=== PATIENT | male | born 1955 | race Caucasian/White ===

== ENCOUNTER 2017-01-18 05:16 | Inpatient (IN) | payer BC ==
--- NOTE | 2016-12-03 14:27 | PAT Medication Instructions ---
Service Date Dec 03, 2016. Current Home Medication List Fish Oil (Lamar-3), 1 CAP PO QAM Insulin Glargine (Lantus), 20-25 UNITS SC QPM Lorazepam (Ativan), 1-2 MG PO DAILY PRN for PRN Losartan Potassium (Cozaar), 12.5 MG PO QAM Metformin Hcl (Glucophage), 1,000 MG PO BID Multivitamin (Multivitamin), 1 TAB PO QAM Naproxen (Aleve), 220 MG PO Q12 Omeprazole (Prilosec), 20 MG PO QAM Simvastatin (Zocor), 20 MG PO QPM Medication Instructions For Your Scheduled Surgery - Check with surgeon for instructions: Naproxen (Aleve), 220 MG PO Q12 - Hold the following medications 2 weeks prior to surgery: Fish Oil (Lamar-3), 1 CAP PO QAM - Hold the following medications 48 hours prior to surgery: Metformin Hcl (Glucophage), 1,000 MG PO BID - Hold the following medications the morning of surgery: Multivitamin (Multivitamin), 1 TAB PO QAM Losartan Potassium (Cozaar), 12.5 MG PO QAM - Take the following medications the morning of surgery with a sip of water: Omeprazole (Prilosec), 20 MG PO QAM Lorazepam (Ativan), 1-2 MG PO DAILY PRN for PRN - Take the following medications as scheduled the night before surgery: Insulin Glargine (Lantus), 20-25 UNITS SC QPM Simvastatin (Zocor), 20 MG PO QPM Lorazepam (Ativan), 1-2 MG PO DAILY PRN for PRN If you have any questions please call us at [phone] (Analia Mike PA-C) or [phone] or [phone]
[2016-12-03 14:42] LABS: BASO % 0.4 %; BASO ABS # 0.03 K/uL (0-0.2); COMPLETE YES; EOS % 2.4 %; HEMATOCRIT 43.3 % (42-52); IG% 0.1 %; LYMPH % 22.8 %; LYMPH ABS # 1.63 K/uL (1.2-3.4); MEAN CELL VOLUME 86.8 fL (80-100); MEAN CORPUSCULAR HEMOGLOBIN 29.7 pg (25-34); MEAN CORPUSCULAR HGB CONC 34.2 g/dl (32-36); MONO % 8.5 %; NEUT % 65.8 %; PLATELET COUNT 339 K/uL (130-400); RED BLOOD COUNT 4.99 M/uL (4.7-6.1); WHITE BLOOD COUNT 7.15 K/uL (4.8-10.8)
--- NOTE | 2016-12-03 14:53 | DIAGNOSTIC IMAGING REPORT ---
TWO VIEW CHEST CLINICAL HISTORY: Preoperative examination. FINDINGS: PA and lateral chest radiographs are compared to study dated 08/16/2014. The cardiomediastinal silhouette is unremarkable. The lungs and pleural spaces are clear. There is no pneumothorax. The bony thorax appears intact. Degenerative change is noted in the thoracic spine. IMPRESSION: No active disease in the chest. Electronically signed by: Dudley Wang M.D. 12/03/2016 2:51 PM Dictated Date/Time: 12/03/2016 2:50 PM
[2016-12-03 15:04] LABS: BLOOD UREA NITROGEN 23 mg/dl (7-18); BUN/CREATININE RATIO 27.1 (10-20); C-REACTIVE PROTEIN < 0.29 mg/dl (0-0.29); CALCIUM 9.1 mg/dl (8.5-10.1); CARBON DIOXIDE 28 mmol/L (21-32); CHLORIDE 101 mmol/L (98-107); CREATININE 0.84 mg/dl (0.60-1.40); GLUCOSE 167 mg/dl (70-99); POTASSIUM 3.9 mmol/L (3.5-5.1); SODIUM 139 mmol/L (136-145)
[2016-12-03 15:06] LABS: INR 0.9 (0.9-1.1); PARTIAL THROMBOPLASTIN RATIO 0.9; PROTHROMBIN TIME (PATIENT) 10.1 SECONDS (9.0-12.0)
[2016-12-04 06:03] LABS: ESTIMATED AVERAGE GLUCOSE 143 mg/dl; HA1C FLAG Normal (Normal)
--- NOTE | 2017-01-15 09:38 | HISTORY & PHYSICAL EXAMINATION ---
DATE OF ADMISSION: 01/18/2017 CHIEF COMPLAINT: Left hip pain. HISTORY OF PRESENT ILLNESS: A 61-year-old gentleman now about 2 years out from right hip replacement. He has done well from that side. Over the past 8 months he has developed markedly increased pain and discomfort in his left hip. It is starting to really limit his walking tolerance and ability to perform his job. The more he walks, the more it hurts. He describes groin pain. He has tried various medicines to include Tylenol and anti-inflammatories which takes the edge off at best. He would like to have his left hip replaced. PAST MEDICAL HISTORY: 1. Hypertension. 2. Elevated cholesterol. 3. Insulin-dependent diabetes. 4. Gastroesophageal reflux disease. PAST SURGICAL HISTORY: Include: 1. Right hip replacement done 09/03/2014. 2. Left patellar tendon repair. 3. Right patella tendon surgery. ALLERGIES: None. CURRENT MEDICATIONS: Include: 1. Metformin. 2. Lisinopril. 3. Insulin. SOCIAL HISTORY: A 61-year-old male. He works as a therapist at [employer]. He is from [place]. with 3 children. Rare alcohol intake. FAMILY HISTORY: Significant for diabetes, liver cancer, heart disease. REVIEW OF SYSTEMS: Significant for well controlled diabetes with an A1c of 6.6. No chest pain or shortness of breath. No history of DVT or PE. PHYSICAL EXAMINATION: GENERAL: Reveals elderly pleasant, middle-aged male. He looks to be in good health. HEAD, EYES, EARS, NOSE, AND THROAT EXAMINATION: Benign. NECK: Supple. No lymphadenopathy. LUNGS: Clear to auscultation. HEART: Has a regular rate and rhythm. ABDOMEN: Soft, nontender, nondistended. EXTREMITY EXAMINATION: Grossly neurovascularly intact except as follows: Examination of the left hip reveals the patient walks with an antalgic gait. He is about a 0.5 cm short on the left side compared to the right. He has pain with any type of hip motion. Internal rotation is -10, external rotation to 20 degrees. Negative straight leg raise. He is neurologically intact. X-RAYS: X-rays of the left hip were reviewed. It shows advanced left hip DJD. He has got complete loss of the superior joint space. He has got flattening of his femoral head. This has progressed markedly since his previous films. His right hip replacement looks to be in good position. 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 He has failed conservative treatment and would like to have his left hip replaced. PLAN: We are going to take him to the operating room and do a left total hip replacement. The risks and benefits of this procedure were explained to the patient including but not limited to DVT, PE, , infection, neurological injury, vascular injury, bleeding problem, pain, limited range of motion, stiffness, failure to his symptoms, incomplete relief of symptoms, need for further surgery in the future, fracture, leg length inequality, nerve palsy, dislocation, etc. The patient understands and desires to proceed. Informed consent was obtained. We did talk about holding lisinopril the morning of surgery as well as metformin. He will need insulin sliding scale coverage in the hospital. As far as discharge plans, he is planning to be discharged to home using [facility] home health program. The patient had preoperative workup which all looked fairly normal. Chest x-ray showed no acute disease. EKG showed sinus rhythm with some PACs. Labs are all pretty normal. A1c looks good at 6.6.
[~2017-01-18] VITALS: Ht 188 cm; Wt 108.2 kg
[2017-01-18] VITALS (23 sets, daily range): BP systolic 114–157; BP diastolic 71–92; PULSE 64–114; TEMP 36.3–36.9; O2SAT 91–100; Ht 188 cm; Wt 108.2 kg
[~2017-01-18 05:16] MED LIST: ATV/1 PO; INSDGI SC; LOSA1TAB PO; METF-384 PO; MULT-506 PO; NAPR1TAB9 PO; OMEG10007 PO; PRLSR20 PO; SIMV20TA2 PO
[2017-01-18] MEDS ORDERED: TRANEXAMIC ACID INJ 1,000 MG in SODIUM CHLORIDE 0.9% 100ML 100 ML IV SCH (06:00)
[2017-01-18] MEDS ORDERED: ACETAMINOPHEN 500 MG TAB PO SCH (06:00)
[2017-01-18] MEDS ORDERED: FAMOTIDINE 20 MG TAB PO SCH (06:00)
[2017-01-18] MEDS ORDERED: LACTATED RINGER'S 1000ML IV SCH (06:00)
[2017-01-18] MEDS ORDERED: GABAPENTIN 300 MG CAP PO SCH (06:00)
[2017-01-18] MEDS ORDERED: METOCLOPRAMIDE HCL 10 MG TAB PO SCH (06:00)
[2017-01-18] MEDS ORDERED: SCOPOLAMINE 1.5 MG TDSY TD SCH (06:00)
[2017-01-18] MEDS ORDERED: CEFAZOLIN 2000 MG/60 ML D5W 60 ML IV SCH (06:00)
[2017-01-18] MEDS ORDERED: LACTATED RINGER'S 1000ML 1,000 ML IV SCH (06:00)
[2017-01-18] MEDS ORDERED: BUPIVACAINE/EPINEPHRINE 0.5% MPF 1:200,000 30 ML VIAL ONE (06:29)
[2017-01-18] MEDS ORDERED: BACITRACIN 50000 UNIT VIAL ONE (06:29)
[2017-01-18] MEDS ORDERED: BUPIVACAINE 0.5 % 5 MG/1 ML PF 10ML VIAL ONE (06:32)
[2017-01-18] MEDS ORDERED: MoRPHine SULFATE PF 1 MG/ML 10 ML AMP/VIAL ONE (06:42)
[2017-01-18] MEDS ORDERED: MIDAZOLAM HCL 1 MG/ML 2ML VIAL ONE ×2 (06:42)
[2017-01-18] MEDS ORDERED: FENTANYL CITRATE INJ 50 MCG/1 ML 2 ML VIAL ONE (06:42)
--- NOTE | 2017-01-18 06:50 | History & Physical Bridge Note ---
H&P Re-Evaluation Bridge Note: I have examined the patient, reviewed the History & Physical and in the interval since the performance of the History & Physical I have noted the following changes of clinical significance: No changes noted
[2017-01-18] MEDS ORDERED: ONDANSETRON INJ 2 MG/ML 2 ML VIAL ONE (07:27)
[2017-01-18] MEDS ORDERED: PHENYLEPHRINE 100MCG/ML 5ML SYR ONE (07:27)
[2017-01-18] MEDS ORDERED: PROPOFOL IV EMULSION 10 MG/ML 20 ML VIAL IV ONE ×2 (07:27→07:53)
--- NOTE | 2017-01-18 08:28 | [facility] Post Operative Brief Note ---
Immediate Operative Summary Operative Date Jan 18, 2017. Pre-Operative Diagnosis Advanced Left Hip Degenerative Joint Disease Post-Operative Diagnosis Advanced Left Hip Degenerative Joint Disease Procedure(s) Performed Left Total Hip Arthroplasty--Uncemented Surgeon Dr. Iniguez Clinical Abstractor Surgeon(s) MACRINA Hancock Estimated Blood Loss 300 ml Findings Left Hip DJD Fluids (cc crystalloids) 1800 cc Specimens A. Left Femoral Head Drains None Anesthesia Spinal Complication(s) None Disposition Recovery Room / PACU
[2017-01-18] MEDS ORDERED: MAGNESIUM HYDROXIDE SUSP 30 ML UDC PO PRN (08:30)
[2017-01-18] MEDS ORDERED: GLUCAGON FOR INJ 1 MG VIAL SQ PRN (08:30)
[2017-01-18] MEDS ORDERED: GLUCOSE 40% GEL 15 GM TUBE PO PRN (08:30)
[2017-01-18] MEDS ORDERED: BISACODYL 10 MG SUPP PR PRN (08:30)
[2017-01-18] MEDS ORDERED: DEXTROSE 50% 50 ML SYR IV PRN (08:30)
[2017-01-18] MEDS ORDERED: TAMSULOSIN HCL 0.4 MG CAP PO PRN (08:30)
[2017-01-18] MEDS ORDERED: GLUCOSE 10 TABS/TUBE PO PRN (08:30)
[2017-01-18] MEDS ORDERED: ALUMINUM/MAGNESIUM/SIMETH (MAALOX MAX) 30 ML UDC PO PRN (08:30)
[2017-01-18] MEDS ORDERED: SILVER SULFADIAZINE 1% CR 50 GM JAR EXT PRN (08:30)
[2017-01-18] MEDS ORDERED: NALOXONE HCL INJ 0.08 MG in SYRINGE 1.8 ML IV PRN (08:56)
[2017-01-18] MEDS ORDERED: LACTATED RINGER'S 1000ML 500 ML IV PRN (08:56)
[2017-01-18] MEDS ORDERED: NALOXONE HCL INJ 1 MG in SODIUM CHLORIDE 0.9% 1000ML 1,000 ML IV PRN ×4 (08:56)
[2017-01-18] MEDS ORDERED: SODIUM CHLORIDE 0.9% 1000ML 1,000 ML IV PRN (08:56)
--- NOTE | 2017-01-18 08:59 | Anesthesiology Progress Note ---
Anesthesia Post Op Note Date & Time Jan 18, 2017 at 08:59 Vital Signs Pain Intensity: 0 Vital Signs Past 12 Hours Date Time Temp Pulse Resp B/P Pulse Ox O2 Delivery O2 Flow Rate FiO2 01/18/17 08:55 73 19 118/79 99 Nasal Cannula 2 01/18/17 08:45 76 14 123/75 98 Nasal Cannula 2 01/18/17 08:35 88 18 125/75 99 Nasal Cannula 2 01/18/17 08:29 36.7 84 12 111/65 97 Nasal Cannula 2 01/18/17 06:01 36.8 90 22 157/92 97 Room Air Notes Mental Status: alert / awake / arousable, participated in evaluation Pt Amnestic to Procedure: Yes Nausea / Vomiting: adequately controlled Pain: adequately controlled Airway Patency, RR, SpO2: stable & adequate BP & HR: stable & adequate Hydration State: stable & adequate Neuraxial Anesthesia: was administered, sensory block is resolving Anesthetic Complications: no major complications apparent
[2017-01-18] MEDS ORDERED: ONDANSETRON INJ 2 MG/ML 2 ML VIAL IV PRN (09:00)
[2017-01-18] MEDS ORDERED: NALOXONE HCL 0.4 MG/1 ML VIAL/CARP IV PRN (09:00)
[2017-01-18] MEDS ORDERED: MULTIVITAMIN TAB PO SCH (09:00)
[2017-01-18] MEDS ORDERED: NALBUPHINE HCL INJ 10 MG/ML AMP IV PRN (09:00)
[2017-01-18] MEDS ORDERED: DiphenhydrAMINE HCL 50 MG/ML VIAL IV PRN (09:00)
[2017-01-18] MEDS ORDERED: NO NARCOTICS OR SEDATIVES SCH (09:00)
[2017-01-18] MEDS ORDERED: PANTOprazole SOD 40 MG TAB PO SCH (09:00)
[2017-01-18] MEDS ORDERED: EpHEDrine SULFATE INJ 50 MG/ML AMP IV PRN (09:00)
[2017-01-18] MEDS ORDERED: PROMETHAZINE HCL INJ 25 MG in SODIUM CHLORIDE 0.9% 50ML 50 ML IV PRN (09:00)
[2017-01-18] MEDS ORDERED: MoRPHine SULFATE PF 1 MG/ML 10 ML AMP/VIAL EPI PRN (09:00)
--- NOTE | 2017-01-18 09:15 | DIAGNOSTIC IMAGING REPORT ---
LEFT PELVIS/UNILATERAL HIP 1 VIEW CLINICAL HISTORY: Left hip arthroplasty. COMPARISON: Pelvis and left hip radiographs October 14, 2016. FINDINGS: No periprosthetic fracture or unexpected radiopaque foreign bodies are identified. On the first crosstable lateral radiograph obtained at 8:47 AM, there is anterior dislocation of the femoral component with respect to the acetabular cup. Alignment is anatomic on the second image obtained at 8:57 AM. Skin sunny are present. A right hip arthroplasty is noted. IMPRESSION: 1. Status post total left hip arthroplasty. No periprosthetic fracture or unexpected radiopaque foreign body. 2. Anatomic alignment of the left hip arthroplasty on the second, final image. Anterior subluxation/dislocation on the initial image. Electronically signed by: Cruz Chavez M.D. 01/18/2017 9:14 AM Dictated Date/Time: 01/18/2017 9:08 AM
--- NOTE | 2017-01-18 09:19 | OPERATIVE REPORT ---
DATE OF OPERATION: 01/18/2017 SURGEON: Easton Iniguez MD DEMAND PLANNING ANALYST: MACRINA Varner PREOPERATIVE DIAGNOSIS: Left hip degenerative joint disease. POSTOPERATIVE DIAGNOSIS: Same. PROCEDURE PERFORMED: Left uncemented ceramic on highly cross-linked polyethylene total hip arthroplasty. COMPLICATIONS: None. ESTIMATED BLOOD LOSS: 300 mL. FLUID REPLACEMENT: 1800 mL crystalloid fluid replacement. ANESTHESIA: Spinal. DRAINS: None. SPECIMENS: Left femoral head sent for pathology. OPERATIVE INDICATIONS: The patient is a 61-year-old male who has had a long history of bilateral hip problems. He had a right hip replacement 2 years ago and has done well from this. Over the past few years, he has developed markedly increased pain and discomfort in his left hip. He failed conservative care. X-rays showed advanced left hip DJD. He elected to proceed with operative treatment. OPERATIVE FINDINGS: Operative findings revealed advanced left hip DJD. He had a large hip joint effusion. Large osteophytes around the acetabulum as well as the femoral head. He had a large joint effusion with bloody effusion. OPERATIVE IMPLANTS: Operative implants consisted of: 1. Biomet G7 size 58-mm acetabular shell. 2. A 6.5 cancellous acetabular screws, 1 at 35 mm length and 1 at 20 mm length. 3. Vitamin E enriched highly cross-linked polyethylene liner with 58 mm outer diameter, 36 mm inner diameter. 4. An apex hole eliminator. 5. A DePuy size 15 large stature high offset femoral stem. 6. A +5/36 mm ceramic articular ball. OPERATIVE PROCEDURE: The patient was taken to the operating room, identified and placed on the operating table in the supine position. All contact areas were appropriately padded. IV antibiotics provided by the anesthesia team. A spinal anesthetic had been implemented in the holding area. Coronado catheter was placed in the sterile fashion. The patient was then placed in the right lateral decubitus position. An axillary roll was placed. Stulberg hip positioner was used for positioning. The left hip and leg were then prepped and draped in usual sterile fashion. Posterolateral approach to the left hip was then performed through a curvilinear incision centered over the greater trochanter. Sharp dissection was carried out through the subcutaneous tissue down to the level of the IT band and gluteal fascia. The IT band and gluteal fascia were then incised longitudinally in line with skin incision. The underlying greater trochanteric bursa was excised. The piriformis and external rotators were tagged and taken carefully off the posterior aspect of the femur. Great care was taken throughout the procedure to protect the sciatic nerve at all times. Posterior capsulotomy was then performed leaving a large flap for later repair. Hip was internally rotated and dislocated. Femoral neck osteotomy cut was made with the final cut 15 mm above the lesser trochanter. Femoral head was removed and sent for pathology. The femur was retracted anteriorly. Attention was then drawn to the acetabulum. The acetabular labrum was excised. The pulvinar fat was excised. Sequential reaming of the acetabulum was then performed beginning with a size 51 and progressing up to 57. A 58-mm G7 acetabular shell was then placed in about 40 degrees of lateral opening and 20 degrees of anteversion. It was fixed with two 6.5 cancellous acetabular screws. A large anterior osteophyte was removed. A trial liner was placed. Attention was then drawn to the femur. The proximal femur was entered with cookie cutter followed by canal finder and lateralizing reamer. Sequential reaming of the femur was then performed beginning with a size 10 and progressing up to 14.5. We got excellent chatter at a 14.5. I then broached beginning with a size 12 small and progressing up to a 15 large. We got good metaphyseal fit. Calcar reamer was used to smoothen off the calcar. We then trialed the hip. Everything felt pretty well with the +5/36 mm articular ball, but the soft tissue tension was still a little bit lax. We then placed a high offset stem, which improved the soft tissue tension. The hip was fully stable in full extension, external rotation, flexion to 90 degrees, and internal rotation to 70 degrees. Leg lengths appeared appropriately. Attention was then drawn toward placement of the permanent components. All trial components were removed. An apex hole eliminator was placed. A vitamin E enriched highly cross-linked polyethylene liner was placed. A 15 large stature high offset femoral stem was impacted in position. We got excellent scratch fit. A +5/36 mm ceramic articular ball was placed. Hip was located and once again found to be stable. Attention was then drawn toward closing. I irrigated the wound extensively. I did inject locally with 60 mL of 0.5% Marcaine with epinephrine. I irrigated extensively. The posterior capsule and external rotators were repaired to the posterior aspect of the greater trochanter with #2 Ti-Cron sutures through drill holes. The IT band and gluteal fascia were then closed with #1 PDS suture in a running fashion. The subcutaneous tissues were then closed with 2-0 Dexon suture in a buried interrupted fashion. The skin was then closed with skin sunny. Leg was then cleaned and dried and a sterile dressing composed of Xeroform, 4 x 4, sterile ABD pad and foam tape were applied. The patient was then transferred to the recovery room in stable condition. The patient tolerated the procedure well with no complications. All needle and sponge counts were correct at the end of the operation. I attest to the content of the Intraoperative Record and any orders documented therein. Any exceptio ns are noted below.
[2017-01-18] MEDS: SODIUM CHLORIDE 0.9% 1000ML 1,000 ML IV SCH ×3 (10:41→22:19)
[2017-01-18] MEDS: DOCUSATE SODIUM 100 MG CAP PO SCH ×2 (11:08→21:34)
[2017-01-18] MEDS: PANTOprazole SOD 40 MG TAB PO SCH (11:09)
[2017-01-18] MEDS: MULTIVITAMIN TAB PO SCH (11:09)
[2017-01-18] MEDS: KETOROLAC TROMETHAMINE 30 MG/ML VIAL IV. SCH ×3 (11:10→21:38)
[2017-01-18] MEDS: LOSARTAN POTASSIUM 25 MG TAB PO SCH (11:10)
[2017-01-18] MEDS: FERROUS GLUCONATE 324 MG TAB PO SCH ×2 (13:19→17:59)
[2017-01-18] MEDS: INSULIN HUMAN REGULAR SC SCH ×3 (13:43→21:32)
[2017-01-18] MEDS: ACETAMINOPHEN 500 MG TAB PO SCH ×2 (13:45→21:37)
[2017-01-18] MEDS: CEFAZOLIN IV 2,000 MG in DEXTROSE 5% 50ML 50 ML IV SCH ×2 (13:46→22:18)
--- NOTE | 2017-01-18 13:47 | PROGRESS NOTE ---
DATE: 01/18/2017 SUBJECTIVE: A 61-year-old gentleman postop from a left hip replacement. He is doing well. Not having any pain. No chest pain or shortness of breath. Not feeling dizzy or lightheaded. OBJECTIVE: VITAL SIGNS: Temperature is 36.5. Vital signs stable. GENERAL: Reveals a pleasant, middle-aged male. He is sitting up in bed and looks pretty comfortable. LUNGS: Clear to auscultation. HEART: Regular rate and rhythm. ABDOMEN: Soft, nontender, nondistended. EXTREMITIES: Grossly neurovascularly intact except as follows: Examination of the left lower extremity reveals the leg lengths to be equal. His toes are pointed to the ceiling. His hip is located. He can dorsiflex and plantarflex his foot appropriately. He is neurologically intact. X-RAYS: X-rays of the left hip from recovery room were reviewed. X-rays show the components to be in good position. On the initial lateral film, there was some subluxation of the femoral head anteriorly. We repositioned the foot as it was extremely externally rotated and the hip is located. ASSESSMENT: A 61-year-old gentleman postop from a left total hip replacement, doing well. His hip is located. He is neurologically intact. In the recovery room, he had some anterior subluxation likely just due to muscle relaxation and the large osteophytes we took off anteriorly to create some extra space there. His hip is clinically located now and I do not think that is going to be a problem as his muscle tones returned. PLAN: 1. DVT prophylaxis including thigh-high TEDs, SCDs, and aspirin twice a day. 2. PT/OT. Weightbearing as tolerated. Left total hip protocol. 3. Pain control, doing well with current pain regimen. Not having any pain. 4. IV antibiotics x24 hours. 5. Disposition: He is planning to be discharged to home with some home health once adequately recovered.
[2017-01-18] MEDS ORDERED: TRANEXAMIC ACID INJ 1,000 MG in SODIUM CHLORIDE 0.9% 100ML 100 ML IV ONE (15:00)
[2017-01-18] MEDS ORDERED: RXC5 PO (15:33)
[2017-01-18] MEDS ORDERED: ACET-1138 PO (15:33)
[2017-01-18] MEDS ORDERED: ASPEC325 PO (15:33)
[2017-01-18] MEDS: CHECK SCOPOLAMINE PATCH PLACEMENT SCH ×2 (16:12→23:40)
[2017-01-18] MEDS ORDERED: SIMVASTATIN 20 MG TAB PO SCH (21:00)
[2017-01-18] MEDS: ASPIRIN 325 MG ECTAB PO SCH (21:34)
[2017-01-19] VITALS (8 sets, daily range): BP systolic 106–150; BP diastolic 62–80; PULSE 73–84; TEMP 36.8–36.9; O2SAT 92–97
[2017-01-19] MEDS ORDERED: DC INTRASPINAL MORPHINE SCH (02:00)
[2017-01-19] MEDS ORDERED: ONDANSETRON INJ 2 MG/ML 2 ML VIAL IV PRN (02:01)
[2017-01-19] MEDS ORDERED: MoRPHine SULFATE 2 MG/ML CARP IV PRN (02:01)
[2017-01-19] MEDS ORDERED: METOCLOPRAMIDE HCL INJ 5 MG/ML 2 ML VIAL IV PRN (02:01)
[2017-01-19] MEDS ORDERED: OXYCODONE HCL IR 5 MG TAB (IMMEDIATE RELEASE) PO PRN (02:01)
[2017-01-19] MEDS ORDERED: LORAZEPAM 1 MG TAB PO PRN (02:01)
[2017-01-19] MEDS ORDERED: DiphenhydrAMINE HCL 50 MG/ML VIAL IV PRN (02:01)
[2017-01-19] MEDS ORDERED: ZOLPIDEM TARTRATE 5 MG TAB PO PRN (02:01)
[2017-01-19] MEDS: KETOROLAC TROMETHAMINE 30 MG/ML VIAL IV. SCH ×2 (03:49→12:11)
[2017-01-19] MEDS: SODIUM CHLORIDE 0.9% 1000ML 1,000 ML IV SCH (03:53)
[2017-01-19] MEDS: ACETAMINOPHEN 500 MG TAB PO SCH ×2 (05:31→13:09)
[2017-01-19 06:37] LABS: MEAN CORPUSCULAR HGB CONC 34.6 g/dl (32-36); MEAN PLATELET VOLUME 9.4 fL (7.4-10.4); PLATELET COUNT 289 K/uL (130-400)
[2017-01-19 07:11] LABS: BUN/CREATININE RATIO 13.6 (10-20); CALCIUM 8.1 mg/dl (8.5-10.1); CREATININE 0.8 mg/dl (0.60-1.40); HEMATOCRIT 35.6 % (42-52); MEAN CELL VOLUME 85.2 fL (80-100); MEAN CORPUSCULAR HEMOGLOBIN 29.4 pg (25-34); POTASSIUM 4.2 mmol/L (3.5-5.1); RED BLOOD COUNT 4.18 M/uL (4.7-6.1)
[2017-01-19 07:12] LABS: BASO % 0.3 %; BASO ABS # 0.02 K/uL (0-0.2); COMPLETE YES; EOS % 2.9 %; IG% 0.1 %; LYMPH % 15.8 %; LYMPH ABS # 1.09 K/uL (1.2-3.4); NEUT % 71.9 %
--- NOTE | 2017-01-19 07:30 | Anesthesiology Progress Note ---
Anesthesia Post Op Note Date & Time Jan 19, 2017 at 07:29 Vital Signs Pain Intensity: 0.0 Vital Signs Past 12 Hours Date Time Temp Pulse Resp B/P Pulse Ox O2 Delivery O2 Flow Rate FiO2 01/19/17 03:20 36.8 73 16 106/62 97 Room Air 01/19/17 02:00 16 95 01/19/17 01:00 16 95 01/19/17 00:00 16 92 01/18/17 23:40 36.7 77 16 125/71 99 Room Air 01/18/17 23:40 Room Air 01/18/17 23:00 16 96 01/18/17 22:00 18 97 01/18/17 21:00 18 98 01/18/17 20:07 36.9 76 16 130/80 98 Room Air 01/18/17 19:59 18 98 01/18/17 19:35 36.7 76 17 145/74 97 Room Air Notes Mental Status: alert / awake / arousable, participated in evaluation Pt Amnestic to Procedure: Yes Nausea / Vomiting: adequately controlled Pain: adequately controlled Airway Patency, RR, SpO2: stable & adequate BP & HR: stable & adequate Hydration State: stable & adequate Neuraxial Anesthesia: sensory block resolved Anesthetic Complications: no major complications apparent
[2017-01-19] MEDS: CHECK SCOPOLAMINE PATCH PLACEMENT SCH (08:00)
[2017-01-19] MEDS: DOCUSATE SODIUM 100 MG CAP PO SCH (08:42)
[2017-01-19] MEDS: PANTOprazole SOD 40 MG TAB PO SCH (08:43)
[2017-01-19] MEDS: MULTIVITAMIN TAB PO SCH (08:43)
[2017-01-19] MEDS: FERROUS GLUCONATE 324 MG TAB PO SCH ×2 (08:44→13:08)
[2017-01-19] MEDS: LOSARTAN POTASSIUM 25 MG TAB PO SCH (08:44)
[2017-01-19] MEDS: ASPIRIN 325 MG ECTAB PO SCH (08:44)
[2017-01-19] MEDS ORDERED: TAPENTADOL ER 50 MG TABCR PO SCH (09:00)
[2017-01-19] MEDS: INSULIN HUMAN REGULAR SC SCH ×2 (09:25→13:15)
--- NOTE | 2017-01-19 13:19 | Discharge Instructions ---
Discharge Instructions Admission Reason for Admission: Left Hip Degenerative Joint Disease Discharge Discharge Diagnosis / Problem: Left Hip Replacement Discharge Goals Goal(s): Decrease discomfort, Improve function, Increase independence, Improve disease control, Therapeutic intervention Activity Recommendations Activity Limitations: per Instructions/Follow-up section (Total Hip PRecautions ) Weightbearing Status: Left weightbearing . Instructions / Follow-Up Instructions / Follow-Up ACTIVITY RECOMMENDATIONS: Physical Therapy: * Aggressive physical therapy is not usually needed. You will learn to take care of yourself safely and walk. * Follow the "Hip Precautions Instructions." * In some cases, the executive secretary social welfare at the hospital will arrange to have a therapist come to your house for the first couple of weeks to help you learn these skills. * You need to practice on your own or with the help of a family member as needed. * When you learn these skills, most of the therapy can be done on your own. Home Exercise: * You were shown a series of exercises in the hospital. Do these exercises three to four times each day including the exercises you were shown in physical therapy. Walking: * Get up and walk several times each day. For the first four weeks, try not to stand or walk for more than one hour at a time. If you do stand or walk for more than one hour, you will not hurt anything, but your leg will likely swell. * As you feel comfortable, you may change from the walker or crutches to a cane and then to independent walking. MEDICATIONS: New Medicine: * You will likely be taking one or more of these medicines: 1. Oxycodone - Take, as directed, when you need it, every four to six hours to control your pain. 2. Aspirin - Thins your blood to lessen the chance of forming a blood clot. * The most common side effects of pain medicine and iron are nausea and constipation. If nausea or constipation is too much of a problem or if you have any questions about your new medicines or doses, call [facility] at . We will try to help you manage these issues. VERY IMPORTANT TO READ AND REVIEW" Pain: * The immediate post-operative period after hip replacement surgery is often quite painful. * You are given a prescription for pain medicine. You should take it, as directed, when you need it, especially before physical therapy and before going to bed. Pain that interferes with sleep is very common and can last several months. * You will likely need pain medicine for the first two to four weeks. It will not stop all of the pain. The pain will lessen and as you feel better, you may change to milder pain medicine such as Tylenol. * The most common side effects of pain medicine are nausea and constipation, so don't take more than you need. SPECIAL CARE INSTRUCTIONS: TEDs/Elastic Stockings: * The white elastic stockings help limit swelling and prevent blood clots from forming in your legs. The more you wear them, the more they work. * Wear them for six weeks. Prevention of Infection: * Take antibiotics one hour before any dental cleaning, dental work, urological procedure, gastrointestinal procedure or any invasive surgery in order to prevent your new joint from getting infected. * You may get the antibiotics from the doctor performing the procedure or you may call our office at before and we will call in a prescription to the pharmacy of your choice. Things to Watch For: * Drainage from the incision site that occurs more than one week after your surgery. * Severely increased leg pain or swelling. * Increased redness at the incision site. * Fever above 102 degrees Fahrenheit. * Unusual chest pain or shortness of breath. * Unusual pain or burning with urination. Call [facility] at with any of the above problems or if you have any questions about your medicines or recovery. FOLLOW UP VISIT: Make an appointment to see your doctor for approximately two weeks after surgery for a progress check and staple removal by calling the office at . Current Hospital Diet Patient's current hospital diet: Diabetes Type 2 Diet Discharge Diet Recommended Diet: Diabetes Type 2 Diet Procedures Procedures Performed: Left Total Hip Arthroplasty--Uncemented Pending Studies Studies pending at discharge: no Laboratory Results Hemoglobin A1c Test 12/03/16 14:12 Range/Units Estimated Average Glucose 143 mg/dl Hemoglobin A1c 6.6 H 4.5-5.6 % Medical Emergencies . Who to Call and When: Medical Emergencies: If at any time you feel your situation is an emergency, please call 911 immediately. . Non-Emergent Contact Non-Emergency issues call your: Surgeon . "Provider Documentation" section prepared by Easton Iniguez. VTE Core Measure Inpt VTE Proph given/why not?: Other Anticoagulation, T.E.D. Stockings, SCD's
--- NOTE | 2017-01-19 13:49 | PROGRESS NOTE ---
DATE: 01/19/2017 SUBJECTIVE: A 61-year-old gentleman postop day 1 from a left total hip replacement. He is doing well. Not having any pain. Therapy went well. No chest pain or shortness of breath. He is really desiring to go home. OBJECTIVE: VITAL SIGNS: Temperature 36.8. Vital signs stable. GENERAL: Physical examination reveals a healthy, pleasant, middle-aged male. He is sitting up in her bedside chair talking with his sister. Looks comfortable. LUNGS: Clear to auscultation. HEART: Regular rate and rhythm. ABDOMEN: Soft, nontender, nondistended. EXTREMITIES: Grossly neurovascularly intact except as follows: Examination of the left hip and leg reveals the dressing to be clean, dry and intact. Hip is located. He can dorsiflex and plantarflex his foot appropriately. He is neurologically intact. LABS: Hemoglobin is 12.3, hematocrit 35.6. Electrolytes are stable. ASSESSMENT: A 61-year-old gentleman postop day 1 from left total hip replacement, doing well. He is getting around quite well. He has not had any pain. PLAN: 1. DVT prophylaxis including thigh-high TEDs, SCDs, and aspirin twice a day. 2. PT/OT. Weightbearing as tolerated. Left total hip protocol. 3. Pain control, doing well with current pain regimen. Really not having any pain. 4. Disposition: We are going to discharge him to home.
--- NOTE | 2017-01-26 10:24 | DISCHARGE SUMMARY ---
ADMITTING PHYSICIAN AND SURGEON: Dr. Iniguez. ADMITTING DIAGNOSIS: Left hip degenerative joint disease. SURGERY PERFORMED: Left total hip arthroplasty. SECONDARY DIAGNOSES: Hypertension, elevated cholesterol, diabetes, gastroesophageal reflux disease. CONSULTS: None obtained. HISTORY AND PHYSICAL EXAMINATION: Well documented in the patient's chart. HOSPITAL COURSE: The patient was admitted on 01/18/2017 underwent total hip arthroplasty, tolerated the procedure well. There were no complications. He was transferred to the PACU postoperatively and later to the orthopedic floor for further care. He was given Ancef for antibiotic prophylaxis, DUNCAN stockings, SCDs and aspirin for DVT prophylaxis. Hemoglobin, hematocrit and vital signs were monitored during his hospital stay and remained stable, did not require any blood transfusions. There were no complications. By postoperative day 1, he was tolerating a diabetic diet. Really was not having any pain. He was participating in physical therapy and had no signs or symptoms of deep vein thrombosis. On postop day 1, he was discharged home in good condition. He was given printed discharge instructions including prescriptions for extra strength Tylenol, aspirin 325 mg b.i.d., oxycodone, continue his home medications, continue physical therapy, weightbearing as tolerated, DUNCAN stockings, total hip precautions and follow up in 10-12 days or sooner if there are problems or concerns.
== END 2017-01-19 15:31 | disposition home or self-care (01) | DRG 470 ==
LOC: ENRESERVDT → ENRESERVTM → C.ACU 05:16 → C.3E 08:35
PROVIDERS: ADMIT Orthopaedic Surgery Sports Medicine; ATTEND Orthopaedic Surgery Sports Medicine
PROC: 0SRB04A Replacement of Left Hip Joint with Ceramic on Polyethylene Synthetic Substitute, Uncemented, Open Approach (ICD-10-PCS; principal; 2017-01-18 07:00)
DX: M16.12 Unilateral primary osteoarthritis, left hip (principal); M25.452 Effusion, left hip; I10 Essential (primary) hypertension; E78.00 Pure hypercholesterolemia, unspecified; E11.9 Type 2 diabetes mellitus without complications; K21.9 Gastro-esophageal reflux disease without esophagitis; E66.9 Obesity, unspecified; Z68.30 Body mass index [BMI] 30.0-30.9, adult; Z96.641 Presence of right artificial hip joint; Z79.4 Long term (current) use of insulin; Z79.1 Long term (current) use of non-steroidal anti-inflammatories (NSAID); Z79.84 Long term (current) use of oral hypoglycemic drugs; Z79.899 Other long term (current) drug therapy

== ENCOUNTER → 2017-03-04 | Outpatient (CLI) | payer BC ==
[~2017-03-04] MED LIST changes: +ACET-1138 PO; +ASPEC325 PO; -NAPR1TAB9 PO; +RXC5 PO
[2017-03-04 12:51] LABS: ALT/SGPT 24 U/L (12-78); BLOOD UREA NITROGEN 19 mg/dl (7-18); BUN/CREATININE RATIO 24.6 (10-20); CALCIUM 9.3 mg/dl (8.5-10.1); CARBON DIOXIDE 27 mmol/L (21-32); CHLORIDE 99 mmol/L (98-107); CHOLESTEROL 174 mg/dl (0-200); CREATININE 0.78 mg/dl (0.60-1.40); GLUCOSE 136 mg/dl (70-99); HDL CHOLESTEROL 44 mg/dl; LDL CHOLESTEROL CALCULATED 106 mg/dl; SODIUM 137 mmol/L (136-145); TRIGLYCERIDES 118 mg/dl (0-150); VERY LOW DENSITY LIPOPROT CALC 24 mg/dl
[2017-03-04 12:54] LABS: ALB/GLOB RATIO 1.1 (0.9-2); ALKALINE PHOSPHATASE 66 U/L (45-117); AST/SGOT 12 U/L (15-37)
[2017-03-04 14:38] LABS: ESTIMATED AVERAGE GLUCOSE 140 mg/dl; HA1C FLAG Normal (Normal)
== END | disposition home or self-care (01) ==
LOC: C.LABBFT 07:35
PROVIDERS: ATTEND Family Medicine
DX: E78.2 Mixed hyperlipidemia (principal); I10 Essential (primary) hypertension; E11.9 Type 2 diabetes mellitus without complications

== ENCOUNTER → 2017-10-28 | Outpatient (CLI) | payer BC ==
[2017-10-28 12:28] LABS: ESTIMATED AVERAGE GLUCOSE 143 mg/dl; HA1C FLAG Normal (Normal)
[2017-10-28 12:41] LABS: BLOOD UREA NITROGEN 21 mg/dl (7-18); BUN/CREATININE RATIO 24.7 (10-20); CALCIUM 9.4 mg/dl (8.5-10.1); CARBON DIOXIDE 31 mmol/L (21-32); CHLORIDE 101 mmol/L (98-107); CREATININE 0.85 mg/dl (0.60-1.40); GLUCOSE 150 mg/dl (70-99); POTASSIUM 5.1 mmol/L (3.5-5.1); SODIUM 133 mmol/L (136-145)
== END | disposition home or self-care (01) ==
LOC: C.LABBFT 07:12
PROVIDERS: ATTEND Family Medicine
DX: E11.9 Type 2 diabetes mellitus without complications (principal)

== ENCOUNTER → 2018-07-19 | Outpatient (CLI) | payer BC ==
[2018-07-19 17:32] LABS: ALBUMIN 3.9 gm/dl (3.4-5.0); ALKALINE PHOSPHATASE 54 U/L (45-117); ALT/SGPT 24 U/L (12-78); AST/SGOT 14 U/L (15-37); BLOOD UREA NITROGEN 19 mg/dl (7-18); CALCIUM 9.5 mg/dl (8.5-10.1); CARBON DIOXIDE 29 mmol/L (21-32); CHOLESTEROL 159 mg/dl (0-200); CREATININE 0.79 mg/dl (0.60-1.40); GLUCOSE 109 mg/dl (70-99); LDL CHOLESTEROL CALCULATED 86 mg/dl; SODIUM 138 mmol/L (136-145); TOTAL PROTEIN 7.8 gm/dl (6.4-8.2)
[2018-07-20 06:08] LABS: HEMOGLOBIN A1C 6.4 % (4.5-5.6)
== END | disposition home or self-care (01) ==
LOC: C.LABBFT 14:11
PROVIDERS: ATTEND Physician Assistant Medical
DX: E11.9 Type 2 diabetes mellitus without complications (principal); E78.2 Mixed hyperlipidemia